=== PATIENT | male | born 1955 | race Caucasian/White ===

== ENCOUNTER 2017-05-22 22:07 | Inpatient (IN) | payer OTHER ==
[2017-05-22] MEDS: ONDANSETRON 4 MG INJ IV (23:21)
[2017-05-22] MEDS: morphine 4 MG/ML VIAL IV (23:21)
[2017-05-22 23:22] LABS: ADD MAN DIFF? NO
[2017-05-22 23:24] LABS: WHITE BLOOD COUNT 14.6 10^3/ul (4.8-10.8)
[2017-05-22 23:24] LABS: BASOPHIL # 0.1 10^3/ul (0.0-0.1); BASOPHILS % 0.4 % (0.0-2.0); EOSINOPHILS # 0.1 10^3/ul (0.0-0.5); EOSINOPHILS % 0.5 % (0.0-7.0); HEMOGLOBIN 13.3 g/dl (14.0-18.0); MEAN CORPUSCULAR HEMOGLOBIN 31.2 pg (29.0-33.0); MEAN CORPUSCULAR VOLUME 89.2 fl (82.0-101.0); MEAN PLATELET VOLUME 11.2 fl (7.4-10.4); MONOCYTE # 0.8 10^3/ul (0.3-0.9); MONOCYTES % 5.7 % (0.0-11.0); NEUTROPHIL # 12.6 10^3/ul (1.6-7.5); NEUTROPHILS % 85.9 % (39.0-77.0); PLATELET COUNT 296 10^3/UL (140-415); RED BLOOD COUNT 4.26 10^6/ul (4.70-6.10); RED CELL DISTRIBUTION WIDTH 15.6 % (11.5-14.5)
[2017-05-22 23:58] LABS: ALANINE AMINOTRANSFERASE 52 IU/L (13-69); ALBUMIN 5.2 g/dl (3.3-4.9); ALBUMIN/GLOBULIN RATIO 1.62; ALKALINE PHOSPHATASE 60 IU/L (42-121); ANION GAP 21 (8-16); ASPARTATE AMINO TRANSFERASE 37 IU/L (15-46); BILIRUBIN,INDIRECT 0.7 mg/dl (0-1.1); BILIRUBIN,TOTAL 0.7 mg/dl (0.2-1.3); BLOOD UREA NITROGEN 20 mg/dl (7-20); CALCIUM 9.4 mg/dl (8.4-10.2); CARBON DIOXIDE 25 mmol/L (21-31); CHLORIDE 102 mmol/L (97-110); CREATININE 0.99 mg/dl (0.61-1.24); GLUCOSE 148 mg/dl (70-220); LIPASE 72 U/L (23-300); SODIUM 144 mmol/L (135-144); TOTAL PROTEIN 8.4 g/dl (6.1-8.1)
[2017-05-23] MEDS: KETOROLAC 15 MG INJ IV (00:32)
[2017-05-23] MEDS: SOD CHLORIDE 0.9% 1,000 ML IV (00:39)
[2017-05-23 01:15] LABS: URINE PH (Dip) POC 5.5 (5.0-8.5)
[2017-05-23 01:15] LABS: URINE BLOOD (Dip) POC 1+ (NEGATIVE); URINE GLUCOSE (Dip) POC Negative (NEGATIVE); URINE KETONES (Dip) POC Negative (NEGATIVE); URINE LEUKOCYTE EST (Dip) POC Negative (NEGATIVE); URINE NITRITE (Dip) POC Negative (NEGATIVE); URINE TOTAL PROTEIN POC Negative (NEGATIVE)
[2017-05-23] MEDS: PIPER-TAZO 3.375 GM IV (PMX) 100 ML IVPB ×2 (03:25→18:00)
[2017-05-23] MEDS: HYDROmorphONE 0.5 MG/0.5 ML SYG IV (04:12)
[2017-05-23] MEDS: ACETAMINOPHEN 650 MG SUPP PR (06:02)
[2017-05-23] MEDS: morphine 2 MG INJ IV (07:04)
[2017-05-23] MEDS: ONDANSETRON 4 MG INJ IV (07:11)
[2017-05-23] MEDS ORDERED: hydrALAzine 20 MG INJ IV (15:00)
[2017-05-23] MEDS ORDERED: DIPHENHYDRAMINE 50 MG INJ IV (17:30)
[2017-05-23] MEDS ORDERED: FENTAnyl 50 MCG/ML VIAL IV ×3 (17:30)
[2017-05-23] MEDS ORDERED: HYDROmorphONE (0.2 MG/ML) 10ML SYG IV ×2 (17:30)
[2017-05-23] MEDS ORDERED: ONDANSETRON 4 MG INJ IV (17:30)
[2017-05-23] MEDS ORDERED: PROCHLORPERAZINE 10 MG INJ IV (17:30)
[2017-05-23] MEDS ORDERED: FENTAnyl 50 MCG/ML VIAL (17:43)
[2017-05-23] MEDS ORDERED: MIDAZOLAM 1 MG/ML 2 ML INJ (17:44)
[2017-05-23] MEDS ORDERED: LIDOCAINE 1% (MDV) 20 ML INJ (17:45)
[2017-05-23] MEDS ORDERED: PROPOFOL 20 ML (17:45)
[2017-05-23] MEDS ORDERED: SUCCINYLCHOLINE CHLORIDE 100 MG/5 ML SYG IV (17:45)
[2017-05-23] MEDS ORDERED: ROCURONIUM 50 MG INJ ×2 (17:45→18:25)
[2017-05-23] MEDS ORDERED: ROPIVACAINE 0.5 % 30 ML VIAL (17:57)
[2017-05-23] MEDS ORDERED: FAMOTIDINE 20 MG INJ (18:03)
[2017-05-23] MEDS ORDERED: ONDANSETRON 4 MG INJ (18:03)
[2017-05-23] MEDS ORDERED: DEXAMETHASONE 4 MG/ML 1 ML INJ (18:03)
[2017-05-23] MEDS ORDERED: CEFAZOLIN 1 GM INJ (18:21)
[2017-05-23] MEDS ORDERED: EPHEDrine SULFATE 50 MG/5 ML SYG (18:22)
[2017-05-23] MEDS ORDERED: ACETAMINOPHEN 1000MG/100ML IV 100 ML (18:25)
[2017-05-23] MEDS: BUPIVACAINE 0.25% (MPF) 30 ML INJ (18:36)
[2017-05-23] MEDS ORDERED: hydrALAzine 20 MG INJ (18:37)
[2017-05-23] MEDS ORDERED: SUGAMMADEX SODIUM 200 MG/2 ML VIAL IV (18:48)
[2017-05-23] MEDS ORDERED: LABETALOL HCL 20MG INJ (18:56)
[2017-05-23] MEDS ORDERED: morphine 2 MG INJ IV (19:30)
[2017-05-23] MEDS ORDERED: OXYCODONE/ACETAMINOPHEN (5/325) TAB PO (19:30)
[2017-05-23] MEDS: HYDROmorphONE (0.2 MG/ML) 10ML SYG IV ×2 (19:34→20:40)
[2017-05-23] MEDS: LEVALBUTEROL (NEB) 0.63 MG/3 ML AMP HHN (20:13)
[2017-05-23] MEDS: MEPERIDINE 25 MG INJ IV (20:40)
[2017-05-23] MEDS: METOPROLOL 100 MG TAB PO (21:45)
[2017-05-23] MEDS: ALBUTEROL/IPRATROPIUM (NEB) 3 ML AMP HHN (22:30)
[2017-05-24] MEDS ORDERED: PIPER-TAZO 3.375 GM IV (PMX) 100 ML IVPB
[2017-05-24] MEDS: PIPER-TAZO 3.375 GM IV (PMX) 100 ML IVPB ×4 (00:49→18:02)
[2017-05-24] MEDS: ACETAMINOPHEN 500 MG TAB PO (00:49)
[2017-05-24] MEDS: ALBUTEROL/IPRATROPIUM (NEB) 3 ML AMP HHN ×4 (01:22→20:32)
[2017-05-24] MEDS: morphine 2 MG INJ IV (04:21)
[2017-05-24 04:44] LABS: ADD MAN DIFF? NO
[2017-05-24 04:47] LABS: ABNORMAL IP MESSAGE 1; BASOPHILS % 0.1 % (0.0-2.0); HEMATOCRIT 35.4 % (42.0-52.0); HEMOGLOBIN 11.9 g/dl (14.0-18.0); LYMPHOCYTES # 0.5 10^3/ul (0.8-2.9); LYMPHOCYTES % 2.6 % (15.0-51.0); MEAN CORPUSCULAR HEMOGLOBIN 30.8 pg (29.0-33.0); MEAN CORPUSCULAR HGB CONC 33.6 g/dl (32.0-37.0); MEAN CORPUSCULAR VOLUME 91.7 fl (82.0-101.0); MEAN PLATELET VOLUME 11.5 fl (7.4-10.4); MONOCYTE # 0.8 10^3/ul (0.3-0.9); MONOCYTES % 3.6 % (0.0-11.0); NEUTROPHIL # 19.5 10^3/ul (1.6-7.5); NEUTROPHILS % 93.3 % (39.0-77.0); PLATELET COUNT 239 10^3/UL (140-415); POSITIVE DIFF @See below; RED BLOOD COUNT 3.86 10^6/ul (4.70-6.10); RED CELL DISTRIBUTION WIDTH 15.9 % (11.5-14.5)
[2017-05-24 04:47] LABS: WHITE BLOOD COUNT 20.9 10^3/ul (4.8-10.8)
[2017-05-24 05:07] LABS: ALANINE AMINOTRANSFERASE 197 IU/L (13-69); ALBUMIN 3.9 g/dl (3.3-4.9); ALBUMIN/GLOBULIN RATIO 1.25; ALKALINE PHOSPHATASE 65 IU/L (42-121); ANION GAP 18 (8-16); ASPARTATE AMINO TRANSFERASE 128 IU/L (15-46); BILIRUBIN,INDIRECT 1.9 mg/dl (0-1.1); BILIRUBIN,TOTAL 1.9 mg/dl (0.2-1.3); BLOOD UREA NITROGEN 19 mg/dl (7-20); CALCIUM 8.6 mg/dl (8.4-10.2); CARBON DIOXIDE 26 mmol/L (21-31); CHLORIDE 102 mmol/L (97-110); CREATININE 1.18 mg/dl (0.61-1.24); GLUCOSE 147 mg/dl (70-220); POTASSIUM 4.1 mmol/L (3.5-5.1); SODIUM 142 mmol/L (135-144)
[2017-05-24] MEDS: OXYCODONE/ACETAMINOPHEN (5/325) TAB PO ×3 (08:36→16:27)
[2017-05-24] MEDS: LISINOPRIL 20 MG TAB PO (11:27)
[2017-05-24] MEDS: METOPROLOL 100 MG TAB PO ×2 (11:32→21:28)
[2017-05-25] MEDS: PIPER-TAZO 3.375 GM IV (PMX) 100 ML IVPB ×5 (00:24→23:28)
[2017-05-25] MEDS: ALBUTEROL/IPRATROPIUM (NEB) 3 ML AMP HHN ×4 (02:51→19:32)
[2017-05-25 05:32] LABS: ADD MAN DIFF? NO
[2017-05-25 05:34] LABS: BASOPHILS % 0.2 % (0.0-2.0); EOSINOPHILS # 0.1 10^3/ul (0.0-0.5); EOSINOPHILS % 0.6 % (0.0-7.0); HEMATOCRIT 31.5 % (42.0-52.0); HEMOGLOBIN 10.7 g/dl (14.0-18.0); LYMPHOCYTES # 0.7 10^3/ul (0.8-2.9); LYMPHOCYTES % 7.1 % (15.0-51.0); MEAN CORPUSCULAR HEMOGLOBIN 31.4 pg (29.0-33.0); MEAN CORPUSCULAR VOLUME 92.4 fl (82.0-101.0); MEAN PLATELET VOLUME 11.2 fl (7.4-10.4); MONOCYTE # 0.6 10^3/ul (0.3-0.9); MONOCYTES % 5.8 % (0.0-11.0); NEUTROPHIL # 8.1 10^3/ul (1.6-7.5); NEUTROPHILS % 85.9 % (39.0-77.0); PLATELET COUNT 191 10^3/UL (140-415); RED BLOOD COUNT 3.41 10^6/ul (4.70-6.10)
[2017-05-25 05:34] LABS: WHITE BLOOD COUNT 9.4 10^3/ul (4.8-10.8)
[2017-05-25 06:03] LABS: ALANINE AMINOTRANSFERASE 139 IU/L (13-69); ALBUMIN 3.7 g/dl (3.3-4.9); ALBUMIN/GLOBULIN RATIO 1.19; ALKALINE PHOSPHATASE 60 IU/L (42-121); ANION GAP 13 (8-16); ASPARTATE AMINO TRANSFERASE 72 IU/L (15-46); BILIRUBIN,INDIRECT 0.7 mg/dl (0-1.1); BILIRUBIN,TOTAL 0.7 mg/dl (0.2-1.3); BLOOD UREA NITROGEN 27 mg/dl (7-20); CALCIUM 8.5 mg/dl (8.4-10.2); CARBON DIOXIDE 28 mmol/L (21-31); CHLORIDE 103 mmol/L (97-110); CREATININE 1.16 mg/dl (0.61-1.24); GLUCOSE 105 mg/dl (70-220); POTASSIUM 3.9 mmol/L (3.5-5.1); SODIUM 140 mmol/L (135-144); TOTAL PROTEIN 6.8 g/dl (6.1-8.1)
[2017-05-25] MEDS: METOPROLOL 100 MG TAB PO ×2 (10:01→21:24)
[2017-05-25] MEDS: ENOXAPARIN 40 MG/0.4 ML SYG SC (10:01)
[2017-05-25] MEDS: LISINOPRIL 20 MG TAB PO (10:02)
[2017-05-25] MEDS: OXYCODONE/ACETAMINOPHEN (5/325) TAB PO (13:39)
[2017-05-25 14:54] LABS: AADO2 Arterial 167.8 mmHg (7.0-24.0); Allen Test ACCEPTAB; Arterial Base Excess 1.7 mmol/L (-3.0-3); Arterial Blood Gas Oxygen Sat 92.3 mmHG (95.0-98.0); Arterial COHb 0.2 % (0.0-3.0); Arterial Fraction of Oxyhgb 91.9 % (93.0-99.0); Arterial MetHb 0.2 % (0.0-1.5); Arterial pCO2 39.6 mmhg (35-45); MODE NASAL CANNULA; Site Right Radial
[2017-05-26] MEDS: ALBUTEROL/IPRATROPIUM (NEB) 3 ML AMP HHN ×4 (01:30→19:50)
[2017-05-26] MEDS: PIPER-TAZO 3.375 GM IV (PMX) 100 ML IVPB ×3 (05:12→18:21)
[2017-05-26] MEDS: ONDANSETRON 4 MG INJ IV (05:12)
[2017-05-26] MEDS: OXYCODONE/ACETAMINOPHEN (5/325) TAB PO (05:17)
[2017-05-26 05:37] LABS: ADD MAN DIFF? NO
[2017-05-26 05:40] LABS: BASOPHILS % 0.5 % (0.0-2.0); EOSINOPHILS # 0.1 10^3/ul (0.0-0.5); EOSINOPHILS % 1.6 % (0.0-7.0); HEMATOCRIT 30.6 % (42.0-52.0); HEMOGLOBIN 10.5 g/dl (14.0-18.0); LYMPHOCYTES # 0.7 10^3/ul (0.8-2.9); LYMPHOCYTES % 13.3 % (15.0-51.0); MEAN CORPUSCULAR HEMOGLOBIN 31.3 pg (29.0-33.0); MEAN CORPUSCULAR HGB CONC 34.3 g/dl (32.0-37.0); MEAN CORPUSCULAR VOLUME 91.1 fl (82.0-101.0); MEAN PLATELET VOLUME 11.8 fl (7.4-10.4); MONOCYTE # 0.5 10^3/ul (0.3-0.9); MONOCYTES % 8.9 % (0.0-11.0); NEUTROPHIL # 4.1 10^3/ul (1.6-7.5); NEUTROPHILS % 75.5 % (39.0-77.0); NUCLEATED RED BLOOD CELLS # 0.1 10^3/ul (0.0-0.0); NUCLEATED RED BLOOD CELLS% 1.1 /100WBC (0.0-0.0); PLATELET COUNT 242 10^3/UL (140-415); RED BLOOD COUNT 3.36 10^6/ul (4.70-6.10); RED CELL DISTRIBUTION WIDTH 15.7 % (11.5-14.5)
[2017-05-26 05:40] LABS: WHITE BLOOD COUNT 5.5 10^3/ul (4.8-10.8)
[2017-05-26 06:16] LABS: ANION GAP 16 (8-16); BLOOD UREA NITROGEN 22 mg/dl (7-20); CALCIUM 8.8 mg/dl (8.4-10.2); CARBON DIOXIDE 27 mmol/L (21-31); CHLORIDE 104 mmol/L (97-110); CREATININE 1.05 mg/dl (0.61-1.24); GLUCOSE 95 mg/dl (70-220); POTASSIUM 3.9 mmol/L (3.5-5.1); SODIUM 143 mmol/L (135-144)
[2017-05-26] MEDS: METOPROLOL 100 MG TAB PO ×2 (08:38→20:43)
[2017-05-26] MEDS: LISINOPRIL 20 MG TAB PO (08:38)
[2017-05-26] MEDS: ENOXAPARIN 40 MG/0.4 ML SYG SC (08:41)
[2017-05-26] MEDS: ACETAMINOPHEN 500 MG TAB PO (20:43)
[2017-05-26] MEDS: AL HYDROX/MG HYDROX/SIMETH 30 ML CUP PO (21:43)
[2017-05-27] MEDS: PIPER-TAZO 3.375 GM IV (PMX) 100 ML IVPB ×4 (00:12→17:52)
[2017-05-27] MEDS: ALBUTEROL/IPRATROPIUM (NEB) 3 ML AMP HHN ×3 (01:29→14:09)
[2017-05-27 05:16] LABS: ADD MAN DIFF? NO
[2017-05-27 05:21] LABS: BASOPHILS % 0.6 % (0.0-2.0); EOSINOPHILS # 0.1 10^3/ul (0.0-0.5); EOSINOPHILS % 2.7 % (0.0-7.0); HEMATOCRIT 31.1 % (42.0-52.0); HEMOGLOBIN 11.2 g/dl (14.0-18.0); LYMPHOCYTES # 0.8 10^3/ul (0.8-2.9); LYMPHOCYTES % 15.7 % (15.0-51.0); MEAN CORPUSCULAR HEMOGLOBIN 32.7 pg (29.0-33.0); MEAN CORPUSCULAR VOLUME 90.7 fl (82.0-101.0); MEAN PLATELET VOLUME 10.9 fl (7.4-10.4); MONOCYTE # 0.6 10^3/ul (0.3-0.9); MONOCYTES % 10.9 % (0.0-11.0); NEUTROPHIL # 3.6 10^3/ul (1.6-7.5); NEUTROPHILS % 69.7 % (39.0-77.0); PLATELET COUNT 310 10^3/UL (140-415); RED BLOOD COUNT 3.43 10^6/ul (4.70-6.10); RED CELL DISTRIBUTION WIDTH 15.5 % (11.5-14.5)
[2017-05-27 05:21] LABS: WHITE BLOOD COUNT 5.2 10^3/ul (4.8-10.8)
[2017-05-27 05:54] LABS: ANION GAP 17 (8-16); BLOOD UREA NITROGEN 19 mg/dl (7-20); CALCIUM 9.2 mg/dl (8.4-10.2); CARBON DIOXIDE 28 mmol/L (21-31); CHLORIDE 104 mmol/L (97-110); CREATININE 1.04 mg/dl (0.61-1.24); GLUCOSE 96 mg/dl (70-220); SODIUM 145 mmol/L (135-144)
[2017-05-27 08:17] LABS: AADO2 Arterial 72.6 mmHg (7.0-24.0); Allen Test ACCEPTAB; Arterial Base Excess 1.5 mmol/L (-3.0-3); Arterial Blood Gas Oxygen Sat 94.1 mmHG (95.0-98.0); Arterial COHb 0.4 % (0.0-3.0); Arterial Fraction of Oxyhgb 93.6 % (93.0-99.0); Arterial HCO3 25.7 mmol/L (22.0-26.0); Arterial MetHb 0.1 % (0.0-1.5); Arterial Total Hemglobin 13.3 g/dl (12.0-18.0); Arterial pCO2 38.9 mmhg (35-45); MODE NASAL CANNULA; Site Left Radial
[2017-05-27] MEDS: LISINOPRIL 20 MG TAB PO (08:28)
[2017-05-27] MEDS: METOPROLOL 100 MG TAB PO (08:29)
[2017-05-27] MEDS: ENOXAPARIN 40 MG/0.4 ML SYG SC (08:31)
[2017-05-27] MEDS: AL HYDROX/MG HYDROX/SIMETH 30 ML CUP PO (19:27)
== END 2017-05-27 19:30 | disposition home or self-care (01) | DRG 417 ==
LOC: MS1 05-24 17:05 → E/R 22:07 → MS3 05-23 04:12 → ICU 05-23 23:50
PROC: 0FT44ZZ Resection of Gallbladder, Percutaneous Endoscopic Approach (ICD-10-PCS; principal; 2017-05-23 16:30)
PROC: 4A033R1 Measurement of Arterial Saturation, Peripheral, Percutaneous Approach (ICD-10-PCS; 2017-05-23 17:43)
DX: K80.00 Calculus of gallbladder with acute cholecystitis without obstruction (principal); J96.01 Acute respiratory failure with hypoxia; J98.11 Atelectasis; D64.9 Anemia, unspecified; I10 Essential (primary) hypertension; E66.9 Obesity, unspecified; K76.0 Fatty (change of) liver, not elsewhere classified; Z79.82 Long term (current) use of aspirin
CPT/HCPCS: 36415; 36600; 71045; 74176; 76705; 78226; 80048; 80053; 81003; 82803; 83690; 85025; 87040; 87081; 88304; 93005; 93306; 93970; 94640; 94664; 96374; 96375; 99285-25

== ENCOUNTER 2017-06-03 10:05 | Emergency (ER) | payer OTHER ==
[2017-06-03 15:21] LABS: ADD MAN DIFF? NO
[2017-06-03 15:28] LABS: WHITE BLOOD COUNT 7.7 10^3/ul (4.8-10.8)
[2017-06-03 15:28] LABS: BASOPHILS % 0.5 % (0.0-2.0); EOSINOPHILS # 0.1 10^3/ul (0.0-0.5); EOSINOPHILS % 1.3 % (0.0-7.0); HEMATOCRIT 34.7 % (42.0-52.0); HEMOGLOBIN 11.9 g/dl (14.0-18.0); LYMPHOCYTES # 1.4 10^3/ul (0.8-2.9); MEAN CORPUSCULAR HEMOGLOBIN 30.9 pg (29.0-33.0); MEAN CORPUSCULAR HGB CONC 34.3 g/dl (32.0-37.0); MEAN CORPUSCULAR VOLUME 90.1 fl (82.0-101.0); MEAN PLATELET VOLUME 10.3 fl (7.4-10.4); MONOCYTE # 0.7 10^3/ul (0.3-0.9); MONOCYTES % 8.6 % (0.0-11.0); NEUTROPHIL # 5.4 10^3/ul (1.6-7.5); NEUTROPHILS % 70.3 % (39.0-77.0); PLATELET COUNT 401 10^3/UL (140-415); RED BLOOD COUNT 3.85 10^6/ul (4.70-6.10); RED CELL DISTRIBUTION WIDTH 14.9 % (11.5-14.5)
[2017-06-03 15:43] LABS: ADD UMIC YES; UR ASCORBIC ACID NEGATIVE (NEGATIVE); UR BILIRUBIN (Dip) NEGATIVE (NEGATIVE); UR BLOOD (Dip) 1+ mg/dL (NEGATIVE); UR CLARITY SLIGHTLY CLOUDY (CLEAR); UR COLOR YELLOW (YELLOW); UR GLUCOSE (Dip) NEGATIVE (NEGATIVE); UR KETONES (Dip) NEGATIVE (NEGATIVE); UR LEUKOCYTE ESTERASE (Dip) NEGATIVE Leu/ul (NEGATIVE); UR NITRITE (Dip) NEGATIVE (NEGATIVE); UR RBC 2 /HPF (0-5); UR SPECIFIC GRAVITY (Dip) 1.017 (1.003-1.030); UR TOTAL PROTEIN (Dip) NEGATIVE (NEGATIVE); UR UROBILINOGEN (Dip) NEGATIVE (NEGATIVE); UR WBC 1 /HPF (0-5)
[2017-06-03 15:54] LABS: ALANINE AMINOTRANSFERASE 38 IU/L (13-69); ALBUMIN 4.5 g/dl (3.3-4.9); ALBUMIN/GLOBULIN RATIO 1.28; ALKALINE PHOSPHATASE 77 IU/L (42-121); ANION GAP 18 (8-16); ASPARTATE AMINO TRANSFERASE 19 IU/L (15-46); BILIRUBIN,INDIRECT 0.3 mg/dl (0-1.1); BILIRUBIN,TOTAL 0.3 mg/dl (0.2-1.3); BLOOD UREA NITROGEN 21 mg/dl (7-20); CALCIUM 9.4 mg/dl (8.4-10.2); CARBON DIOXIDE 28 mmol/L (21-31); CHLORIDE 100 mmol/L (97-110); CREATININE 1.02 mg/dl (0.61-1.24); GLUCOSE 101 mg/dl (70-220); LIPASE 138 U/L (23-300); POTASSIUM 4.6 mmol/L (3.5-5.1); SODIUM 141 mmol/L (135-144)
[2017-06-03] MEDS: SOD CHLORIDE 0.9% 500 ML IV (17:21)
[2017-06-03] MEDS: KETOROLAC 15 MG INJ IV (17:21)
[2017-06-03] MEDS: SOD CHLORIDE 0.9% 100 ML (18:08)
[2017-06-03] MEDS: IODIXANOL LOCM 100 ML BTL (18:09)
== END 2017-06-03 20:20 | disposition home or self-care (01) ==
LOC: E/R 10:05
DX: R10.9 Unspecified abdominal pain (principal); R33.9 Retention of urine, unspecified; K76.9 Liver disease, unspecified; E86.0 Dehydration; D64.9 Anemia, unspecified; I10 Essential (primary) hypertension; Z79.82 Long term (current) use of aspirin
CPT/HCPCS: 36415; 74177; 80053; 81001; 83690; 85025; 96374; 99285-25